=== PATIENT | male | born 1985 | race African-American/Black ===

== ENCOUNTER 2017-02-24 20:27 | Emergency (ER) | payer BC ==
[~2017-02-24] VITALS: Ht 177.8 cm; Wt 136.1 kg
[2017-02-24] MEDS ORDERED: NO MEDICATIONS (20:39)
== END 2017-02-24 21:43 | disposition home or self-care (01) ==
LOC: SED 20:27
DX: S01.01XA Laceration without foreign body of scalp, initial encounter (principal); S01.81XA Laceration without foreign body of other part of head, initial encounter; F17.210 Nicotine dependence, cigarettes, uncomplicated; Z23 Encounter for immunization; W01.198A Fall on same level from slipping, tripping and stumbling with subsequent striking against other object, initial encounter; Y92.009 Unspecified place in unspecified non-institutional (private) residence as the place of occurrence of the external cause
CPT/HCPCS: 90471; 90715; 99283

== ENCOUNTER 2017-03-02 18:04 | Emergency (ER) | payer BC ==
[~2017-03-02 18:04] MED LIST: NO MEDICATIONS
== END 2017-03-02 18:50 | disposition home or self-care (01) ==
LOC: SED 18:04
DX: S01.01XD Laceration without foreign body of scalp, subsequent encounter (principal); F17.210 Nicotine dependence, cigarettes, uncomplicated
CPT/HCPCS: 99281